=== PATIENT | female | born 2000 | race Caucasian/White ===

== ENCOUNTER 2019-05-23 13:49 | Emergency (ER) | payer OTHER ==
--- NOTE | 2019-05-23 14:18 | ED ---
Throat Pain/Nasal Congestion - HPI Summary HPI Summary: Patient is a 19-year-old female who presents emergency department for a reevaluation of sore throat and swollen tonsils. Patient states she had a positive rapid strep at [facility] 4 days ago and was started on penicillin. Patient states pain and swelling has persisted. Patient states she is able to tolerate by mouth fluids with pain. Denies associated symptoms of fever, cough, vomiting, diarrhea, abdominal pain. No significant past medical history. Symptoms are mild in severity. Swallowing and eating makes symptoms worse. Nothing makes symptoms better. - History of Current Complaint Chief Complaint: EDThroatPain Time Seen by Provider: 05/23/19 14:02 Hx Obtained From: Patient - Allergies/Home Medications Allergies/Adverse Reactions: Allergies Allergy/AdvReac Type Severity Reaction Status Date / Time No Known Allergies Allergy Verified 05/23/19 14:01 PMH/Surg Hx/FS Hx/Imm Hx Previously Healthy: Yes Infectious Disease History: No Infectious Disease History: Denies: Traveled Outside the [place] in Last 30 Days - Family History Known Family History: Positive: Non-Contributory - Social History Occupation: Student Lives: Dormitory/Roommates Alcohol Use: Weekly Substance Use Type: Reports: Marijuana Smoking Status (MU): Never Smoked Tobacco Review of Systems Constitutional: Negative Eyes: Negative Positive: Sore Throat Cardiovascular: Negative Respiratory: Negative Gastrointestinal: Negative Genitourinary: Negative Skin: Negative Neurological: Negative All Other Systems Reviewed And Are Negative: Yes Physical Exam Triage Information Reviewed: Yes Vital Signs On Initial Exam: Initial Vitals Temp Pulse Resp BP Pulse Ox 97.9 F 108 16 157/77 98 05/23/19 13:58 05/23/19 13:58 05/23/19 13:58 05/23/19 13:58 05/23/19 13:58 Vital Signs Reviewed: Yes Appearance: Positive: Well-Appearing - Patient sitting up in bed in no acute distress. Pleasant. Skin: Positive: Warm, Dry Head/Face: Positive: Normal Head/Face Inspection Eyes: Positive: Normal, EOMI, AJ, Conjunctiva Clear ENT: Positive: TMs normal, Other - Marked bilateral tonsillar edema with small exudate. Uvula is midline without deviation. No pooling of secretions, muffled voice or trismus. Neck: Positive: Supple, Enlarged Nodes @ - Posterior and anterior bilateral cervical lymphadenopathy.. Negative: Nuchal Rigidity Respiratory/Lung Sounds: Positive: Clear to Auscultation, Breath Sounds Present Cardiovascular: Positive: Normal, RRR Abdomen Description: Positive: Nontender, Soft Neurological: Positive: Normal, CN Intact II-III Psychiatric: Positive: Affect/Mood Appropriate Procedures - Sedation Patient Received Moderate/Deep Sedation with Procedure: No Diagnostics - Vital Signs Vital Signs Temp Pulse Resp BP Pulse Ox 05/23/19 13:58 97.9 F 108 16 157/77 98 - Laboratory Lab Statement: Any lab studies that have been ordered have been reviewed, and results considered in the medical decision making process. EENT Course/Dx - Course Course Of Treatment: Patient with marked tonsillar edema. Afebrile, well- appearing. Patient is tolerating fluids. Given exam Monospot was ordered and is positive today. We'll switch patient penicillin to clindamycin to cover for strep. Started on prednisone. Patient to follow up with ENT or [facility] on Saturday. To increase fluids. Patient to return to ER symptoms change or worsen. Patient understands and agrees with plan. - Differential Diagnoses Differential Diagnoses: Luca's Angina, Pharyngitis, Tonsilitis - Diagnoses Provider Diagnoses: Strep pharyngitis, Mononucleosis Discharge ED - Sign-Out/Discharge Documenting (check all that apply): Patient Departure - Discharge Plan Condition: Good Disposition: HOME Prescriptions: Clindamycin Cap(NF) [Clindamycin Cap 300 mg Cap(NF)] 300 mg PO Q6H #40 cap predniSONE [Prednisone 20 MG TAB] 40 mg PO DAILY #10 tablet Patient Education Materials: Mononucleosis (ED), Strep Throat (ED) Referrals: Arnaldo Dunne MD [Medical Doctor] - [facility] - Philip LEAL [Primary Care Provider] - Additional Instructions: Schedule a follow up appointment with [facility] or ENT on Saturday Take new medication as directed Stop taking penicillin Increase fluids and rest Motrin for pain as directed No contact sports x 4 weeks Return to ER if symptoms change or worsen - Billing Disposition and Condition Condition: GOOD Disposition: Home - Attestation Statements Provider Attestation: I was available for consultation for this patient. I did not evaluate the patient or participate in any medical decision making or disposition decisions unless I am specifically named in the chart as having consulted on the patient. If I have consulted on the patient, please see my own ED note on the patient encounter. Yumiko Herring MD
[2019-05-23] MEDS ORDERED: predniSONE TAB* 20 MG PO ONE (14:27)
[2019-05-23] MEDS ORDERED: Clindamycin CAP* 150 MG PO ONE (14:27)
[2019-05-23 15:32] VITALS: BP 142/89
== END 2019-05-23 15:30 | disposition home or self-care (01) ==
LOC: ED 13:49
DX: J02.0 Streptococcal pharyngitis (principal); B27.90 Infectious mononucleosis, unspecified without complication
CPT/HCPCS: 36415; 86308; 99282; A9270-GY; J7512